=== PATIENT | male | born 1960 | race Caucasian/White ===

== ENCOUNTER 2018-06-23 09:04 | Day surgery (SDC) | payer OTHER ==
[2018-06-18 12:25] VITALS: BMI 31.1
[~2018-06-23 09:04] MED LIST: LACTATED RINGERS 1,000 ML IV SCH
[2018-06-23 10:10] VITALS: TEMP 97.3
[2018-06-23] MEDS ORDERED: LIDOCAINE 1% 20 ML VIAL (10MG/ML) FOR IV START INTRADERMA ONE (10:24)
[2018-06-23] MEDS ORDERED: PROPOFOL 10 MG/ML 20 ML VIAL IV ONE (10:45)
[2018-06-23] MEDS ORDERED: KETAMINE 10 MG/ML 20 ML VIAL ONE (10:45)
--- NOTE | 2018-06-23 11:28 | P.PCN ---
Date of Procedure: 06/23/18 Procedure(s) Performed: Procedure: Total colonoscopy. Preoperative diagnosis: Screening for neoplasia. Postoperative diagnosis: Diverticulosis with no evidence of acute diverticulitis , strictures, polyps or cancer. Preparation: HalfLytely prep. Sedation: Was provided by anesthesia. Brief clinical history: The patient is a 58-year-old male who is scheduled for this evaluation for screening for neoplasia. The patient had the bout of diverticulitis about 6 weeks ago. No family history of colon cancer. This would be his first colonoscopy. Procedure: With the patient on his left lateral decubitus position and after informed consent and adequate sedation, the perianal area was inspected and it did not show any fissures or fistulas. There were no masses felt on digital rectal examination. The Olympus CFH 190L video colonoscope was then inserted in the rectum in the usual fashion and advanced to the cecum. There were multiple diverticular orifices seen scattered in the sigmoid but I saw no evidence of acute diverticulitis or stricture. An isolated small orifice was seen around the hepatic flexure. The preparation was good. The mucosa appeared healthy. No polyps or tumors were seen or any other abnormalities. I retroflexed the endoscope in the rectum before the endoscope was withdrawn. The patient tolerated the procedure well. Plan: The patient was reassured. Discussed dietary measures. He will follow up with you as planned and I recommended repeat exam in 10 years.
[2018-06-23 11:42] VITALS: BP 152/76; PULSE 98; RESP 20
== END 2018-06-23 11:43 | disposition home or self-care (01) ==
LOC: ORWHC2ENDO 09:04
DX: Z12.11 Encounter for screening for malignant neoplasm of colon (principal); I10 Essential (primary) hypertension; K57.30 Diverticulosis of large intestine without perforation or abscess without bleeding; G47.33 Obstructive sleep apnea (adult) (pediatric); E66.9 Obesity, unspecified; Z79.899 Other long term (current) drug therapy; Z68.31 Body mass index [BMI] 31.0-31.9, adult
CPT/HCPCS: J2704; G0121